=== PATIENT | male | born 1960 | race African-American/Black ===

== ENCOUNTER 2021-04-01 01:42 | Inpatient (IN) | payer MEDICARE, OTHER ==
[~2021-04-01] VITALS: Ht 165.1 cm; Wt 58.1 kg
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
--- NOTE | 2021-04-01 01:58 | NUR ---
per instructions from [employer]" if dc'd at anytime, over the weekend, please call Dionicio Sanders (manager manufacturing) with [employer] task force at [phone] for transport to crisis houseing at [address] [place] [address]
[2021-04-01 02:28] LABS: BASOPHILS % (AUTO) 0.5 % (0.0-2.0); HEMATOCRIT 43 % (39-51); HEMOGLOBIN 14.7 g/dL (13.5-17.5); LYMPHOCYTES # (AUTO) 1.2 K/uL (0.8-4.8); LYMPHOCYTES % (AUTO) 30.1 % (20.0-44.0); MEAN CORPUSCULAR HGB CONC 34 g/dl (31.0-36.0); MEAN CORPUSCULAR VOLUME 96 fL (80-96); MONOCYTES # (AUTO) 0.6 K/uL (0.1-1.30); MONOCYTES % (AUTO) 15.1 % (2.0-12.0); NEUTROPHILS # (AUTO) 2.1 K/uL (1.8-8.9); NEUTROPHILS % (AUTO) 53.3 % (43.0-81.0); PLATELET COUNT (AUTO) 261 K/uL (150-450); RED BLOOD CELL COUNT(AUTO) 4.48 MIL/uL (4.5-6.0); WHITE BLOOD COUNT (AUTO) 3.9 K/uL (4.3-11.0)
[2021-04-01 02:48] LABS: CARBON DIOXIDE 33 mmol/L (21-32); CHLORIDE 105 mmol/L (98-107); GLUCOSE 92 mg/dL (74-106); POTASSIUM 3.3 mmol/L (3.5-5.1); SODIUM SERUM 145 mmol/L (136-145); UREA NITROGEN, BLOOD 16 mg/dL (7-18)
[2021-04-01 02:52] LABS: ACETAMINOPHEN 0 ug/ml (10-30); ALANINE AMINOTRANSFERASE 32 U/L (12-78); ALBUMIN 3.3 g/dL (3.4-5.0); ALCOHOL, BLOOD < 3 mg/dL (0-0); ALKALINE PHOSPHATASE 70 U/L (46-116); ASPARTATE AMINOTRANSFERASE 21 U/L (15-37); BILIRUBIN,DIRECT 0.1 mg/dL (0.0-0.2); BILIRUBIN,TOTAL 0.2 mg/dL (0.2-1.0); TOTAL PROTEIN, SERUM 7.2 g/dL (6.4-8.2)
--- NOTE | 2021-04-01 03:06 | NUR ---
GAVE REPORT TO FÁTIMA ELIZABETH FOR ANGÉLICA
[2021-04-01 03:26] LABS: BILIRUBIN,URINE NEGATIVE (NEGATIVE); COLOR,URINE YELLOW (YELLOW); LEUKOCYTE ESTERASE ,URINE NEGATIVE (NEGATIVE); NITRITE, URINE NEGATIVE (NEGATIVE); PH,URINE 6.5 (5.0-8.0); PROTEIN,URINE NEGATIVE (NEGATIVE); UGLUCOSE NEGATIVE (NEGATIVE); UROBILINOGEN,URINE 0.2 EU/dL (0.2)
[2021-04-01] MEDS ORDERED: MAG HYDROX/AL HYDROX/SIMETH 30 ML UDC PO PRN (04:00)
[2021-04-01] MEDS ORDERED: BLOOD SUGAR DIAGNOSTIC 1 EACH STRIP IN ONE (04:00)
[2021-04-01] MEDS ORDERED: ACETAMINOPHEN 325 MG TABLET PO PRN (04:00)
[2021-04-01 04:06] VITALS: BP 131/80
[2021-04-01] MEDS ORDERED: EFAV1TAB PO (04:23)
[2021-04-01] MEDS ORDERED: QUET100T (04:23)
[2021-04-01] MEDS ORDERED: HYDR25TA4 MT (04:23)
[2021-04-01] MEDS ORDERED: BICT1TAB MT (04:23)
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
--- NOTE | 2021-04-01 05:24 | NUR ---
RN NOTE MIRI GALLEGOS MADE AWARE ABOUT MED RECON TO BE DONE.
--- NOTE | 2021-04-01 06:56 | NUR ---
RN NOTE CALLED DR. FORBES & NOTIFIED ABOUT THE NEW ADMISSION IN ROOM 217.
[2021-04-01 08:00] VITALS: BP 145/87
[2021-04-01] MEDS ORDERED: POTASSIUM CHLORIDE 20 MEQ TAB.PRT.SR PO ONE (09:00)
[2021-04-01] MEDS: LORAZEPAM 0.5 MG TABLET PO PRN (11:17)
--- NOTE | 2021-04-01 11:20 | NUR ---
RN-NOTES PATIENT SCREAMING AND YELLING AT THE EKG STAFF. UPON FACE TO FACE INTERVIEW PATIENT STATED THAT THE WIRE WAS NOT SUPPOSE TO BE REMOVED FROM HIM,AND THAT IT STAY AND REMAIN ON HIS BODY. EXPLAINED THAT THE PROCEDURE WAS DONE THE RIGHT WAY. OFFERED ATIVAN AND AGREED. ATIVAN 0.5MG P.O GIVEN PRN ORDER. WILL CONT. MONITORING FOR SAFETY AND BEHAVIOR.
--- NOTE | 2021-04-01 12:20 | NUR ---
RN- NOTES PATIENT LYING IN BED AWAKE,ALERT CALM,NO ACUTE DISTRESS NOTED.
[2021-04-01 16:10] VITALS: BP 166/96
[2021-04-01 21:00] VITALS: BP 119/73
[2021-04-01] MEDS: QUETIAPINE FUMARATE 25 MG TABLET PO SCH (21:53)
[2021-04-01] MEDS: MAGNESIUM HYDROXIDE 30 ML UDC PO PRN (21:59)
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
[2021-04-02 07:22] LABS: BASOPHILS % (AUTO) 0.6 % (0.0-2.0); EOSINOPHILS % (AUTO) 1.1 % (0.0-6.0); HEMATOCRIT 41 % (39-51); HEMOGLOBIN 13.5 g/dL (13.5-17.5); LYMPHOCYTES % (AUTO) 34.3 % (20.0-44.0); MEAN CORPUSCULAR HGB CONC 33 g/dl (31.0-36.0); MEAN CORPUSCULAR VOLUME 98 fL (80-96); MONOCYTES % (AUTO) 17.8 % (2.0-12.0); NEUTROPHILS # (AUTO) 2.7 K/uL (1.8-8.9); NEUTROPHILS % (AUTO) 46.2 % (43.0-81.0); PLATELET COUNT (AUTO) 79 K/uL (150-450); RED BLOOD CELL COUNT(AUTO) 4.17 MIL/uL (4.5-6.0); WHITE BLOOD COUNT (AUTO) 5.8 K/uL (4.3-11.0)
--- NOTE | 2021-04-02 07:34 | NUR ---
RN NOTE PATIENT WOKE UP & REPORTED THAT HE HAS NOT HAD BM THROUGH OUT THE NIGHT. PATIENT HAD GOOD APPETITE, HAD PLENTY OF SNACKS, NO OTHER SYMPTOMS NOTED. ENDORSED TO AM RN FOR CONTINUITY OF CARE.
[2021-04-02 08:00] VITALS: BP 140/63
[2021-04-02 08:23] LABS: ALBUMIN 2.9 g/dL (3.4-5.0); BILIRUBIN,TOTAL 0.3 mg/dL (0.2-1.0); CALCIUM, SERUM 8.4 mg/dL (8.5-10.1); TOTAL PROTEIN, SERUM 6.7 g/dL (6.4-8.2)
[2021-04-02 08:25] LABS: POTASSIUM 4.6 mmol/L (3.5-5.1)
[2021-04-02 08:38] LABS: CHOLESTEROL 163 mg/dL (<200); HDL CHOLESTEROL 38 mg/dL (40-60); LDL 94 mg/dL (0-99); TRIGLYCERIDES 145 mg/dL (30-150)
[2021-04-02 08:46] LABS: EOSINOPHILS % (MANUAL) 2 % (0-4); LYMPHOCYTES % (MANUAL) 36 % (16-48); MONOCYTES % (MANUAL) 20 % (0-11.0); NEUTROPHILS % (MANUAL) 42 (42-76)
[2021-04-02] MEDS: HYDROCHLOROTHIAZIDE 25 MG TABLET PO SCH (09:44)
[2021-04-02] MEDS: ESCITALOPRAM OXALATE (10 MG) 10 MG TABLET PO SCH (09:45)
[2021-04-02] MEDS: EMTRICITABINE 200 MG CAPSULE PO SCH (11:47)
[2021-04-02] MEDS: TENOFOVIR DISOPROXIL FUMARATE 300 MG TABLET PO SCH (11:47)
[2021-04-02] MEDS: EFAVIRENZ 600 MG TABLET PO SCH (11:47)
[2021-04-02] MEDS: LORAZEPAM 0.5 MG TABLET PO PRN (13:17)
--- NOTE | 2021-04-02 13:18 | NUR ---
Patient c/o anxiety medicated with Ativan 0.5mg will continue to monitor .
--- NOTE | 2021-04-02 13:34 | NUR ---
Patient yelling ,aggressive and agitated ,talking to himself ,throwing himself on the floor ,unpredictable .Patient not following directions ,talking to himself delusional ,offered 1:1 interaction with patient ,encourage patient to verbalize feelings and thoughts but unsuccessful Dr. Sorenson notified with new order ZYPREXA 10MG X1 and 4 point restraint all orders carried out .Zyprexa 10mg IM given AT 13:34 ,patient on 4 point restraint ,patient on 1:1 sitter for safety and observation .Patient refused vital sign x3 ,at 14;45 BP 143 ,95 ,R18 T 98.2 O2 SAT 95% ,patient calm and quite and follow directions ,4 point restraint discontinued order .will continue to monitor for safety q15 minutes .
[2021-04-02] MEDS ORDERED: OLANZAPINE 10 MG VIAL IM STA (13:37)
[2021-04-02 16:00] VITALS: BP 143/99
[2021-04-02] MEDS: GLUCERNA SHAKE 237 ML CAN PO SCH (17:53)
[2021-04-02 20:00] VITALS: BP 129/74
[2021-04-02] MEDS: QUETIAPINE FUMARATE 25 MG TABLET PO SCH (21:50)
[2021-04-03 08:00] VITALS: BP 124/78
[2021-04-03] MEDS: EMTRICITABINE 200 MG CAPSULE PO SCH (08:08)
[2021-04-03] MEDS: TENOFOVIR DISOPROXIL FUMARATE 300 MG TABLET PO SCH (08:09)
[2021-04-03] MEDS: EFAVIRENZ 600 MG TABLET PO SCH (08:09)
[2021-04-03] MEDS: HYDROCHLOROTHIAZIDE 25 MG TABLET PO SCH (08:10)
[2021-04-03] MEDS: ESCITALOPRAM OXALATE (10 MG) 10 MG TABLET PO SCH (08:10)
[2021-04-03] MEDS: GLUCERNA SHAKE 237 ML CAN PO SCH ×3 (08:20→16:44)
--- NOTE | 2021-04-03 09:47 | NUR ---
PT COMPLAINED OF CONSTIPATION. PT GIVEN MAALOX.
[2021-04-03 16:00] VITALS: BP 127/74
[2021-04-03] MEDS: MAGNESIUM HYDROXIDE 30 ML UDC PO PRN (16:27)
--- NOTE | 2021-04-03 16:29 | NUR ---
PT COMPLAINS OF CONSTIPATION. MILK OF MAGNESIA GIVEN
[2021-04-03] MEDS: QUETIAPINE FUMARATE 25 MG TABLET PO SCH ×2 (16:42→21:19)
[2021-04-03 20:00] VITALS: BP 125/76
[2021-04-04] MEDS ORDERED: LACTULOSE 10 G/15 ML UDC (PYXIS) PO ONE (03:00)
[2021-04-04] MEDS ORDERED: SORBITOL SOLUTION 30 ML PO ONE (03:00)
--- NOTE | 2021-04-04 04:19 | NUR ---
GPS RN NOTES: PATIENT C/O CONSTIPATION, EL ORDERED LACTULOSE 10/15ML AND SORBITOL 15ML. BOTH MEDS GIVEN PO ORDERED. PARTIAL DOSE OF SORBITOL 15ML WASTED. WILL CONTINUE TO MONITOR.
--- NOTE | 2021-04-04 06:47 | NUR ---
GPS RN CLOSING NOTE: PATIENT IS CURRENTLY SLEEPING COMFORTABLY IN BED. PATIENT SLEPT 6 HOURS THIS SHIFT. PATIENT WAS COMPLIANT WITH MEDICATION THIS SHIFT. NO S/S OF DISTRESS, RESPIRATION EVEN AND UNLABORED WITH EQUAL RISE AND FALL OF THE CHEST, ON ROOM AIR. BED IN LOWEST POSITION AND LOCKED, SIDE RAILS UP X2. ALL PATIENT CARE NEEDS HAVE BEEN MET AT THIS TIME. WILL CONTINUE TO MONITOR AND ENDORSE TO AM SHIFT.
[2021-04-04 08:00] VITALS: BP 109/65
[2021-04-04] MEDS: QUETIAPINE FUMARATE 25 MG TABLET PO SCH ×3 (08:21→21:09)
[2021-04-04] MEDS: EFAVIRENZ 600 MG TABLET PO SCH (08:21)
[2021-04-04] MEDS: ESCITALOPRAM OXALATE (10 MG) 10 MG TABLET PO SCH (08:21)
[2021-04-04] MEDS: GLUCERNA SHAKE 237 ML CAN PO SCH ×3 (08:21→16:03)
[2021-04-04] MEDS: HYDROCHLOROTHIAZIDE 25 MG TABLET PO SCH (08:22)
[2021-04-04] MEDS: EMTRICITABINE 200 MG CAPSULE PO SCH (08:22)
[2021-04-04] MEDS: TENOFOVIR DISOPROXIL FUMARATE 300 MG TABLET PO SCH (08:22)
--- NOTE | 2021-04-04 09:00 | NUR ---
RN NOTE- PT QUIET THIS MORNING BUT BECAME LABILE AFTER APPROACHING RN FOR MORNING RX PASS. STATED HES HAD NO BM X 3 DAYS. PT AGITATED. REDIRECTED . MEDS GIVEN. COMPLIANT, PT W FLAT AFFECT, POOR EYE CONTACT, DISHEVELED, REFUSES SHOWER. PO INTAKE FAIR. DENIES SI HI VH
[2021-04-04] MEDS ORDERED: BISACODYL SUPP (10 MG) 10 MG/SUPP.RECT SUPP.RECT RC ONE (09:30)
--- NOTE | 2021-04-04 09:31 | NUR ---
RN NOTE- PT W C/O CONTINUED CONSTIPATION. NO BM X 3 DAYS. TRIED LACTULOSE AND SORBITOL LAST NOC TO NO AVAIL. CARLO STOVALL ORDERED DULCOLAX SUPP. X ONE DOSE. COMPLIED.
--- NOTE | 2021-04-04 09:40 | NUR ---
SNF Referrals: FREDI faxed clinicals to SNF's for placement. List of SNF's include: [facility], fax: [phone] [facility], fax: [phone] [facility], fax: [phone] [facility], fax: [phone]
--- NOTE | 2021-04-04 13:50 | NUR ---
D/C Planning: FREDI received a call from Kristina ([phone]) in admissions at [facility] and notified FREDI that the patient has been accepted.
[2021-04-04 14:00] VITALS: BP 113/67
--- NOTE | 2021-04-04 14:16 | NUR ---
RN NOTE- PT REPORTED LARGE BM AFTER LUNCH. SUPPOSITORY EFFECTIVE
[2021-04-04 16:00] VITALS: BP 113/67
--- NOTE | 2021-04-04 19:15 | NUR ---
RN OPENING NOTE PATIENT IS IN BED UNDER THE BLANKET, AWAKE. INTERACTS ONLY WHEN BEING TALKED TO. PATIENT IS PARANOID, ANXIOUS, WITHDRAWN, ABLE TO REDIRECT PATIENT. PATIENT IS A/O X2 AT THIS TIME. BREATHING EVEN AND UNLABORED, NO RESPIRATORY DISTRESS. DENIES SI/HI AT THIS TIME. SAFETY MEASURES IN PLACE: BED LOCKED AND IN LOWEST POSITION. ENCOURAGED PATIENT TO CALL WHEN IN NEED. WILL MONITOR PATIENT'S BEHAVIOR AND FOR SAFETY.
[2021-04-04 20:00] VITALS: BP 148/83
[2021-04-04] MEDS: LORAZEPAM 0.5 MG TABLET PO PRN (20:07)
[2021-04-04 23:00] VITALS: BP 125/75
[2021-04-05 08:00] VITALS: BP 127/91
[2021-04-05] MEDS: GLUCERNA SHAKE 237 ML CAN PO SCH ×3 (08:00→16:38)
[2021-04-05] MEDS: EMTRICITABINE 200 MG CAPSULE PO SCH (09:12)
[2021-04-05] MEDS: TENOFOVIR DISOPROXIL FUMARATE 300 MG TABLET PO SCH (09:13)
[2021-04-05] MEDS: EFAVIRENZ 600 MG TABLET PO SCH (09:14)
[2021-04-05] MEDS: HYDROCHLOROTHIAZIDE 25 MG TABLET PO SCH (09:16)
[2021-04-05] MEDS: ESCITALOPRAM OXALATE (10 MG) 10 MG TABLET PO SCH (09:16)
[2021-04-05] MEDS: QUETIAPINE FUMARATE 25 MG TABLET PO SCH ×3 (09:18→21:15)
--- NOTE | 2021-04-05 09:40 | NUR ---
Probable cause hearing: Pt.'s 5250 hold was upheld on the grounds of gravely disabled.
[2021-04-05] MEDS: MAGNESIUM HYDROXIDE 30 ML UDC PO PRN (11:10)
--- NOTE | 2021-04-05 11:11 | NUR ---
PT STATES BEING CONSTIPATED. MILK OF MAGNESIA GIVEN.
--- NOTE | 2021-04-05 14:26 | NUR ---
Initial Discharge Plan: Pt plans to be discharged to a SNF. Pt has been accepted to [facility]. SW will work with the pt and the MD regarding appropriate discharge planning. SW will form a safe and proper discharge plan.
[2021-04-05 16:00] VITALS: BP 111/77
[2021-04-05 19:53] VITALS: BP 116/76
[2021-04-05] MEDS: ZOLPIDEM TARTRATE 5 MG TABLET PO PRN (22:08)
--- NOTE | 2021-04-05 22:15 | NUR ---
GPS-RN NOTES: INSOMNIA PATIENT C/O INABILITY TO SLEEP. PRN AMBIEN 5MG PO GIVEN ORDERED. WILL CONTINUE TO MONITOR.
[2021-04-06 08:00] VITALS: BP 121/75
[2021-04-06] MEDS: GLUCERNA SHAKE 237 ML CAN PO SCH ×3 (08:30→16:40)
[2021-04-06] MEDS: HYDROCHLOROTHIAZIDE 25 MG TABLET PO SCH (08:31)
[2021-04-06] MEDS: ESCITALOPRAM OXALATE (10 MG) 10 MG TABLET PO SCH (08:31)
[2021-04-06] MEDS: MAGNESIUM HYDROXIDE 30 ML UDC PO PRN (08:31)
[2021-04-06] MEDS: TENOFOVIR DISOPROXIL FUMARATE 300 MG TABLET PO SCH (08:32)
[2021-04-06] MEDS: EMTRICITABINE 200 MG CAPSULE PO SCH (08:32)
[2021-04-06] MEDS: QUETIAPINE FUMARATE 25 MG TABLET PO SCH ×3 (08:32→21:32)
[2021-04-06] MEDS: EFAVIRENZ 600 MG TABLET PO SCH (08:33)
[2021-04-06] MEDS ORDERED: BISACODYL SUPP (10 MG) 10 MG/SUPP.RECT SUPP.RECT RC PRN (10:30)
[2021-04-06 16:00] VITALS: BP 114/67
[2021-04-06 19:53] VITALS: BP 102/69
[2021-04-06] MEDS: SENNOSIDES 8.6 MG TABLET PO SCH (21:32)
[2021-04-06] MEDS: ZOLPIDEM TARTRATE 5 MG TABLET PO PRN (22:37)
--- NOTE | 2021-04-06 22:38 | NUR ---
GPS RN NOTES: AMBIEN 5MG/1TAB GIVEN PO FOR SLEEP AT 2237. WILL CONTINUE TO MONITOR.
[2021-04-07 08:00] VITALS: BP 116/67
[2021-04-07] MEDS: HYDROCHLOROTHIAZIDE 25 MG TABLET PO SCH (09:00)
[2021-04-07] MEDS: GLUCERNA SHAKE 237 ML CAN PO SCH ×3 (09:16→17:50)
[2021-04-07] MEDS: TENOFOVIR DISOPROXIL FUMARATE 300 MG TABLET PO SCH (09:20)
[2021-04-07] MEDS: EFAVIRENZ 600 MG TABLET PO SCH (09:20)
[2021-04-07] MEDS: EMTRICITABINE 200 MG CAPSULE PO SCH (09:20)
[2021-04-07] MEDS: ESCITALOPRAM OXALATE (10 MG) 10 MG TABLET PO SCH (09:22)
[2021-04-07] MEDS: QUETIAPINE FUMARATE 25 MG TABLET PO SCH ×3 (09:22→22:00)
[2021-04-07 16:00] VITALS: BP 101/56
--- NOTE | 2021-04-07 16:19 | NUR ---
D/C Planning: SW discussed D/C planning to [facility] with pt. Pt. is ambivalent. However, stated that he does not want to be homeless and is agreeable to go to [facility]. FREDI called [facility] Kristina CUELLAR, ([phone]) and notified her of discharge on 04/10/2021 and Kristina is agreeable. FREDI will follow up accordingly.
[2021-04-07 20:20] VITALS: BP 149/80
[2021-04-07] MEDS: LORAZEPAM 0.5 MG TABLET PO PRN (20:57)
--- NOTE | 2021-04-07 21:00 | NUR ---
RN NOTES ANXIETY: PT/ C/O FEELING ANXIOUS RESTLESS, ATIVAN 0.5 MG PO PRN GIVEN PER PT. REQUEST, WILL CONTINUE TO MONITOR.
[2021-04-07] MEDS: SENNOSIDES 8.6 MG TABLET PO SCH (22:00)
[2021-04-08 08:00] VITALS: BP 154/70
[2021-04-08] MEDS: GLUCERNA SHAKE 237 ML CAN PO SCH ×3 (08:53→16:47)
[2021-04-08] MEDS: EMTRICITABINE 200 MG CAPSULE PO SCH (08:53)
[2021-04-08] MEDS: TENOFOVIR DISOPROXIL FUMARATE 300 MG TABLET PO SCH (08:53)
[2021-04-08] MEDS: MAGNESIUM HYDROXIDE 30 ML UDC PO PRN (08:53)
[2021-04-08] MEDS: HYDROCHLOROTHIAZIDE 25 MG TABLET PO SCH (08:54)
[2021-04-08] MEDS: EFAVIRENZ 600 MG TABLET PO SCH (08:54)
[2021-04-08] MEDS: QUETIAPINE FUMARATE 25 MG TABLET PO SCH ×3 (08:55→21:25)
[2021-04-08] MEDS: ESCITALOPRAM OXALATE (10 MG) 10 MG TABLET PO SCH (08:55)
[2021-04-08 16:00] VITALS: BP 149/72
[2021-04-08] MEDS: LORAZEPAM 0.5 MG TABLET PO PRN (20:43)
--- NOTE | 2021-04-08 20:43 | NUR ---
RN NOTES ANXIETY: PT/ C/O FEELING ANXIOUS RESTLESS, ATIVAN 0.5 MG PO PRN GIVEN PER PT. REQUEST, WILL CONTINUE TO MONITOR.
[2021-04-08 21:04] VITALS: BP 122/58
[2021-04-08] MEDS: SENNOSIDES 8.6 MG TABLET PO SCH (21:25)
[2021-04-09 08:00] VITALS: BP 124/71
[2021-04-09] MEDS: GLUCERNA SHAKE 237 ML CAN PO SCH ×3 (08:00→17:15)
[2021-04-09] MEDS: QUETIAPINE FUMARATE 25 MG TABLET PO SCH ×3 (09:39→21:29)
[2021-04-09] MEDS: EFAVIRENZ 600 MG TABLET PO SCH (09:39)
[2021-04-09] MEDS: EMTRICITABINE 200 MG CAPSULE PO SCH (09:39)
[2021-04-09] MEDS: HYDROCHLOROTHIAZIDE 25 MG TABLET PO SCH (09:40)
[2021-04-09] MEDS: TENOFOVIR DISOPROXIL FUMARATE 300 MG TABLET PO SCH (09:41)
[2021-04-09] MEDS: ESCITALOPRAM OXALATE (10 MG) 10 MG TABLET PO SCH (09:41)
[2021-04-09 16:00] VITALS: BP 135/87
[2021-04-09] MEDS: LORAZEPAM 0.5 MG TABLET PO PRN (16:24)
--- NOTE | 2021-04-09 16:25 | NUR ---
patient c/o anxiety medicated with ativan 0.5mg x1 will continue to monitor .
[2021-04-09] MEDS: SENNOSIDES 8.6 MG TABLET PO SCH (21:29)
[2021-04-09 21:40] VITALS: BP 129/94
[2021-04-10 08:30] VITALS: BP 125/80
[2021-04-10] MEDS: GLUCERNA SHAKE 237 ML CAN PO SCH ×2 (08:54→12:29)
[2021-04-10 08:55] VITALS: BP 125/80
[2021-04-10] MEDS: ESCITALOPRAM OXALATE (10 MG) 10 MG TABLET PO SCH (08:55)
[2021-04-10] MEDS: HYDROCHLOROTHIAZIDE 25 MG TABLET PO SCH (08:55)
[2021-04-10] MEDS: QUETIAPINE FUMARATE 25 MG TABLET PO SCH (08:55)
[2021-04-10] MEDS: EFAVIRENZ 600 MG TABLET PO SCH (08:57)
[2021-04-10] MEDS: TENOFOVIR DISOPROXIL FUMARATE 300 MG TABLET PO SCH (08:58)
[2021-04-10] MEDS: EMTRICITABINE 200 MG CAPSULE PO SCH (08:58)
--- NOTE | 2021-04-10 09:00 | NUR ---
RN NOTE- PATIENT IS IN BED AWAKE. INTERACTS ONLY WHEN BEING TALKED TO. PATIENT IS PARANOID, ANXIOUS, WITHDRAWN, ABLE TO REDIRECT PATIENT. PATIENT IS A/O X2 AT THIS TIME. BREATHING EVEN AND UNLABORED, NO RESPIRATORY DISTRESS. DENIES SI/HI AT THIS TIME. SAFETY MEASURES IN PLACE: BED LOCKED AND IN LOWEST POSITION. ENCOURAGED PATIENT TO CALL WHEN IN NEED. WILL MONITOR PATIENT'S BEHAVIOR AND FOR SAFETY.
--- NOTE | 2021-04-10 10:35 | NUR ---
SS Note: FREDI faxed COVID test results to [facility] fax: [phone] ATTN;: Kristina for D/C planning.
--- NOTE | 2021-04-10 14:25 | NUR ---
RN NOTE- PT DC AT THIS TIME TO [facility], PT ALERT ORIENTED PERSON PLACE TIME PURPOSE. DENIES SI HI AH VH. PT VS STABLE, ID WRISTBAND REMOVED, VALUABLES RETURNED & SIGNED FOR. ESCORTED OFF UNIT IN [facility] BY STAFF. REPORT PHONED TO KELLY AT FACILITY.
--- NOTE | 2021-04-10 14:30 | NUR ---
Discharge Note: The pt. was discharged to [facility] [[address] [facility] [address]; [phone]]. Pt. was transported via [facility]. Upon discharge the pt.s mood is slightly anxious with distressed affect. The pt. remained calm & cooperative. The pt. denies SI/HI and denies hallucinations. The pt. will be under the care of psychiatrist, Dr. Sorenson for [facility]. Pt. will be seen by scientific affairs manager at [facility] upon admission. Addendum: 04/10/21 at 1506 by SATHYA RAI The pt. was discharged to [facility] [[address] [facility] [address]; [phone]]. Pt. was transported via [facility] [phone]. Upon discharge the pt.s mood is slightly anxious with distressed affect. The pt. remained calm & cooperative. The pt. denies SI/HI and denies hallucinations. The pt. will be under the care of psychiatrist, Dr. Sorenson for [facility]. Pt. will be seen by scientific affairs manager Shar Doe MD [[address] [address]; ] at [facility]. The choice of vendor and multidisciplinary exit care form was done, printed, signed, and given to the patient.
== END 2021-04-10 14:25 | DRG 885 ==
LOC: ER 01:47 → GPS 03:03
PROVIDERS: ADMIT Psychiatry & Neurology Psychiatry; ATTEND Registered Nurse
DX: F31.5 Bipolar disorder, current episode depressed, severe, with psychotic features (principal); F06.8 Other specified mental disorders due to known physiological condition; R45.851 Suicidal ideations; F41.9 Anxiety disorder, unspecified; I10 Essential (primary) hypertension; R73.03 Prediabetes; Z73.6 Limitation of activities due to disability; R53.1 Weakness; R27.8 Other lack of coordination; Z59.0 Homelessness; Z91.81 History of falling; E78.5 Hyperlipidemia, unspecified; Z91.5 Personal history of self-harm
CPT/HCPCS: 36415; 80048-TC; 80053-TC; 80061-TC; 80076-TC; 82962-TC; 85025-TC; 87081-TC; G0480; J3490

== ENCOUNTER 2021-05-10 12:55 | Inpatient (IN) | payer MEDICARE, OTHER ==
[~2021-05-10] VITALS: Ht 165.1 cm; Wt 59.0 kg
[~2021-05-10 12:55] MED LIST: BICT1TAB MT; EFAV1TAB PO; HYDR25TA4 MT; QUET100T PO
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
[2021-05-10 13:57] LABS: BASOPHILS % (AUTO) 0.4 % (0.0-2.0); EOSINOPHILS % (AUTO) 0.7 % (0.0-6.0); HEMATOCRIT 50 % (39-51); HEMOGLOBIN 16.8 g/dL (13.5-17.5); LYMPHOCYTES # (AUTO) 1.4 K/uL (0.8-4.8); LYMPHOCYTES % (AUTO) 30.2 % (20.0-44.0); MEAN CORPUSCULAR HGB CONC 34 g/dl (31.0-36.0); MEAN CORPUSCULAR VOLUME 95 fL (80-96); MONOCYTES # (AUTO) 0.6 K/uL (0.1-1.30); MONOCYTES % (AUTO) 13.1 % (2.0-12.0); NEUTROPHILS # (AUTO) 2.6 K/uL (1.8-8.9); NEUTROPHILS % (AUTO) 55.6 % (43.0-81.0); PLATELET COUNT (AUTO) 227 K/uL (150-450); RED BLOOD CELL COUNT(AUTO) 5.22 MIL/uL (4.5-6.0); WHITE BLOOD COUNT (AUTO) 4.7 K/uL (4.3-11.0)
[2021-05-10 14:10] LABS: CALCIUM, SERUM 9.1 mg/dL (8.5-10.1); CARBON DIOXIDE 26 mmol/L (21-32); CHLORIDE 102 mmol/L (98-107); CREATININE 0.9 mg/dL (0.6-1.3); GLUCOSE 125 mg/dL (74-106); POTASSIUM 3.2 mmol/L (3.5-5.1); SODIUM SERUM 138 mmol/L (136-145); UREA NITROGEN, BLOOD 16 mg/dL (7-18)
[2021-05-10 14:16] LABS: ACETAMINOPHEN 0 ug/ml (10-30); ALANINE AMINOTRANSFERASE 27 U/L (12-78); ALBUMIN 3.4 g/dL (3.4-5.0); ALCOHOL, BLOOD < 3 mg/dL (0-0); ALKALINE PHOSPHATASE 60 U/L (46-116); ASPARTATE AMINOTRANSFERASE 24 U/L (15-37); BILIRUBIN,DIRECT 0.1 mg/dL (0.0-0.2); BILIRUBIN,TOTAL 0.3 mg/dL (0.2-1.0); TOTAL PROTEIN, SERUM 7.4 g/dL (6.4-8.2)
--- NOTE | 2021-05-10 17:07 | NUR ---
covid antigen swab and sent to lab
--- NOTE | 2021-05-10 17:18 | NUR ---
URINE COLLECTED AND SENT TO THE LAB
[2021-05-10 17:32] LABS: BILIRUBIN,URINE Negative (NEGATIVE); COLOR,URINE YELLOW (YELLOW); LEUKOCYTE ESTERASE ,URINE Negative (NEGATIVE); NITRITE, URINE Negative (NEGATIVE); PROTEIN,URINE Negative (NEGATIVE); UGLUCOSE Negative (NEGATIVE); UROBILINOGEN,URINE 0.2 EU/dL (0.2)
--- NOTE | 2021-05-10 18:30 | NUR ---
REPORT GIVEN TO 215
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
--- NOTE | 2021-05-10 19:06 | NUR ---
HEATHER RN AT BEDSIDE FOR EVALUATION.
--- NOTE | 2021-05-10 19:49 | NUR ---
PATIENT IN NO ACUTE DISTRESS, PT VSS, PT BEING TRANSFERRED TO GPS
[2021-05-10 20:25] VITALS: BP 141/86
[2021-05-10 20:45] VITALS: BP 141/86
[2021-05-10] MEDS ORDERED: MAG HYDROX/AL HYDROX/SIMETH 30 ML UDC PO PRN (21:00)
[2021-05-10] MEDS ORDERED: ACETAMINOPHEN 325 MG TABLET PO PRN (21:00)
[2021-05-10] MEDS ORDERED: BLOOD SUGAR DIAGNOSTIC 1 EACH STRIP IN ONE (21:00)
[2021-05-10] MEDS ORDERED: MAGNESIUM HYDROXIDE 30 ML UDC PO PRN (21:00)
[2021-05-10] MEDS ORDERED: TEMAZEPAM 15 MG CAPSULE PO PRN (21:30)
[2021-05-10] MEDS ORDERED: LORA-259 PO (22:54)
[2021-05-10] MEDS: QUETIAPINE FUMARATE 100 MG TABLET PO SCH (23:07)
[2021-05-10] MEDS ORDERED: DOCU-141 PO (23:14)
[2021-05-10] MEDS ORDERED: QUET25TA PO (23:14)
[2021-05-10] MEDS ORDERED: ESCI5TAB PO (23:14)
[2021-05-10] MEDS ORDERED: BISA-79 PR (23:14)
[2021-05-10] MEDS ORDERED: SENN-261 PO (23:14)
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
--- NOTE | 2021-05-11 00:04 | NUR ---
RN NOTE: DR. GRAHAM WAS NOTIFIED ABOUT PATIENT'S ADMISSION AT [facility] GPS UNIT.
--- NOTE | 2021-05-11 00:50 | NUR ---
FÁTIMA NOTE INFORMED DR. PARIS THAT PATIENT'S MEDS ARE READY TO BE RECONCILED. PER DR. PARIS, PATIENT'S MED RECON WILL BE DONE IN MORNING TOMORROW. Addendum: 05/11/21 at 0052 by DEMETRI SANCHEZ RN PER DR. PARIS, MED RECON WILL BE DONE IN AM ON 05/11/21.
[2021-05-11 07:07] LABS: BILIRUBIN,TOTAL 0.3 mg/dL (0.2-1.0); CALCIUM, SERUM 8.5 mg/dL (8.5-10.1); TOTAL PROTEIN, SERUM 6.8 g/dL (6.4-8.2)
[2021-05-11 08:00] VITALS: BP 110/69
[2021-05-11] MEDS ORDERED: ZOLP10TA2 PO (08:34)
[2021-05-11] MEDS ORDERED: MAGN400O6 PO (08:34)
[2021-05-11] MEDS ORDERED: EFAV600T PO (08:34)
[2021-05-11] MEDS ORDERED: ACET325T53 PO (08:34)
[2021-05-11] MEDS ORDERED: EMTR200C4 PO (08:34)
[2021-05-11] MEDS: QUETIAPINE FUMARATE 25 MG TABLET PO SCH (08:52)
[2021-05-11] MEDS ORDERED: POTASSIUM CHLORIDE 20 MEQ TAB.PRT.SR PO ONE ×2 (10:00→12:00)
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
[2021-05-11] MEDS ORDERED: QUETIAPINE FUMARATE 25 MG TABLET PO SCH (13:30)
[2021-05-11 16:00] VITALS: BP 107/72
[2021-05-11 21:04] VITALS: BP 124/81
[2021-05-11] MEDS: QUETIAPINE FUMARATE 100 MG TABLET PO SCH (22:00)
[2021-05-11] MEDS ORDERED: QUETIAPINE FUMARATE 100 MG TABLET PO SCH (22:00)
[2021-05-11] MEDS: EFAVIRENZ 600 MG TABLET PO SCH (22:18)
[2021-05-12 08:00] VITALS: BP 116/69
[2021-05-12] MEDS: DOCUSATE SODIUM 100 MG CAPSULE PO SCH (08:37)
[2021-05-12] MEDS: ESCITALOPRAM OXALATE (10 MG) 10 MG TABLET PO SCH (08:38)
[2021-05-12] MEDS: QUETIAPINE FUMARATE 25 MG TABLET PO SCH (08:38)
[2021-05-12] MEDS: HYDROCHLOROTHIAZIDE 25 MG TABLET PO SCH (08:39)
[2021-05-12] MEDS: EMTRICITABINE 200 MG CAPSULE PO SCH (11:30)
[2021-05-12 16:00] VITALS: BP 107/67
--- NOTE | 2021-05-12 17:59 | NUR ---
GPS RN NOTES PATIENT RESTING IN ROOM, WITHDRAWN MOST OF THE DAY, VERY QUITE
[2021-05-12] MEDS: clonazePAM 0.5 MG TABLET PO PRN (19:53)
--- NOTE | 2021-05-12 20:00 | NUR ---
RN NOTES: ANXIETY PT.C/O VERY ANXIOUS , RESTLESS , KLONOPIN 0.5 MG GIVEN PER PT. REQUEST, WILL CONTINUE TO MONITOR.
[2021-05-12 20:52] VITALS: BP 122/71
[2021-05-12] MEDS: EFAVIRENZ 600 MG TABLET PO SCH (21:28)
[2021-05-12] MEDS: QUETIAPINE FUMARATE 100 MG TABLET PO SCH (21:28)
[2021-05-13 08:00] VITALS: BP 116/79
[2021-05-13] MEDS: DOCUSATE SODIUM 100 MG CAPSULE PO SCH (08:38)
[2021-05-13] MEDS: ESCITALOPRAM OXALATE (10 MG) 10 MG TABLET PO SCH (08:38)
[2021-05-13] MEDS: HYDROCHLOROTHIAZIDE 25 MG TABLET PO SCH (08:38)
[2021-05-13] MEDS: QUETIAPINE FUMARATE 25 MG TABLET PO SCH (08:47)
[2021-05-13] MEDS: EMTRICITABINE 200 MG CAPSULE PO SCH (08:47)
[2021-05-13 16:00] VITALS: BP 122/78
[2021-05-13 20:39] VITALS: BP 113/73
[2021-05-13] MEDS: clonazePAM 0.5 MG TABLET PO PRN (20:49)
[2021-05-13] MEDS: QUETIAPINE FUMARATE 100 MG TABLET PO SCH (20:50)
[2021-05-13] MEDS: EFAVIRENZ 600 MG TABLET PO SCH (21:24)
[2021-05-14 08:00] VITALS: BP 114/71
[2021-05-14] MEDS: DOCUSATE SODIUM 100 MG CAPSULE PO SCH (09:05)
[2021-05-14] MEDS: QUETIAPINE FUMARATE 25 MG TABLET PO SCH (09:05)
[2021-05-14] MEDS: HYDROCHLOROTHIAZIDE 25 MG TABLET PO SCH (09:05)
[2021-05-14] MEDS: ESCITALOPRAM OXALATE (10 MG) 10 MG TABLET PO SCH (09:06)
[2021-05-14] MEDS: EMTRICITABINE 200 MG CAPSULE PO SCH (09:08)
[2021-05-14 16:00] VITALS: BP 141/75
--- NOTE | 2021-05-14 20:00 | NUR ---
GPS-RN NOTES: PATIENT REFUSED WEEKLY SKIN ASSESSMENT.
[2021-05-14 20:41] VITALS: BP 134/83
[2021-05-14] MEDS: QUETIAPINE FUMARATE 100 MG TABLET PO SCH (21:16)
[2021-05-14] MEDS: EFAVIRENZ 600 MG TABLET PO SCH (21:42)
[2021-05-15 08:00] VITALS: BP 125/87
[2021-05-15] MEDS: ESCITALOPRAM OXALATE (10 MG) 10 MG TABLET PO SCH (08:35)
[2021-05-15] MEDS: DOCUSATE SODIUM 100 MG CAPSULE PO SCH (08:35)
[2021-05-15] MEDS: QUETIAPINE FUMARATE 25 MG TABLET PO SCH (08:35)
[2021-05-15] MEDS: HYDROCHLOROTHIAZIDE 25 MG TABLET PO SCH (08:36)
[2021-05-15] MEDS: EMTRICITABINE 200 MG CAPSULE PO SCH (08:38)
--- NOTE | 2021-05-15 09:00 | NUR ---
RN NOTE- RECEIVED PATIENT IN BED COMFORTABLY, AWAKE, GUARDED,ISOLATIVE DEPRESSED MOOD PATIENT CALM.NO ACUTE DISTRESS NOTED.AMBULATORY STEADY GAIT.PATIENT COMPLIANT WITH MEDICATIONS WILL CONT. MONITORING FOR SAFETY AND BEHAVIOR.
[2021-05-15 09:23] LABS: BASOPHILS % (AUTO) 0.4 % (0.0-2.0); EOSINOPHILS % (AUTO) 1.6 % (0.0-6.0); HEMATOCRIT 47 % (39-51); HEMOGLOBIN 15.9 g/dL (13.5-17.5); LYMPHOCYTES # (AUTO) 1.3 K/uL (0.8-4.8); LYMPHOCYTES % (AUTO) 29.8 % (20.0-44.0); MEAN CORPUSCULAR HGB CONC 34 g/dl (31.0-36.0); MEAN CORPUSCULAR VOLUME 97 fL (80-96); MONOCYTES # (AUTO) 0.5 K/uL (0.1-1.30); MONOCYTES % (AUTO) 12.6 % (2.0-12.0); NEUTROPHILS # (AUTO) 2.3 K/uL (1.8-8.9); NEUTROPHILS % (AUTO) 55.6 % (43.0-81.0); PLATELET COUNT (AUTO) 196 K/uL (150-450); RED BLOOD CELL COUNT(AUTO) 4.87 MIL/uL (4.5-6.0); WHITE BLOOD COUNT (AUTO) 4.2 K/uL (4.3-11.0)
[2021-05-15 10:17] LABS: CALCIUM, SERUM 9.1 mg/dL (8.5-10.1); CREATININE 1.2 mg/dL (0.6-1.3); MAGNESIUM 2.2 mg/dL (1.8-2.4); PHOSPHORUS 3.4 mg/dL (2.5-4.9); POTASSIUM 3.4 mmol/L (3.5-5.1)
[2021-05-15 16:00] VITALS: BP 111/80
[2021-05-15 20:00] VITALS: BP 123/88
[2021-05-15] MEDS: EFAVIRENZ 600 MG TABLET PO SCH (21:30)
[2021-05-15] MEDS: QUETIAPINE FUMARATE 100 MG TABLET PO SCH (21:30)
[2021-05-16 08:00] VITALS: BP 106/65
[2021-05-16] MEDS: EMTRICITABINE 200 MG CAPSULE PO SCH (08:17)
[2021-05-16] MEDS: HYDROCHLOROTHIAZIDE 25 MG TABLET PO SCH (08:17)
[2021-05-16] MEDS: DOCUSATE SODIUM 100 MG CAPSULE PO SCH (08:18)
[2021-05-16] MEDS: QUETIAPINE FUMARATE 25 MG TABLET PO SCH (08:18)
[2021-05-16] MEDS: ESCITALOPRAM OXALATE (10 MG) 10 MG TABLET PO SCH (08:20)
--- NOTE | 2021-05-16 09:00 | NUR ---
RN NOTE- WITHDRAWN, ISOLATIVE AT TIMES THOUGH MORE VISIBLE ON UNIT THIS MORNING RECEIVED PATIENT IN BED COMFORTABLY, DEPRESSED MOOD PATIENT CALM. NO ACUTE DISTRESS NOTED. AMBULATORY STEADY GAIT.PATIENT COMPLIANT WITH MEDICATIONS WILL CONT. MONITORING FOR SAFETY AND BEHAVIOR.
--- NOTE | 2021-05-16 15:05 | NUR ---
Probable Cause Hearing Pt's 5250 hold for danger to others and gravely disabled has been discontinued.
[2021-05-16 16:00] VITALS: BP 113/69
[2021-05-16 20:00] VITALS: BP 104/70
--- NOTE | 2021-05-16 21:06 | NUR ---
RN NOTES: COVID19 SPECIMEN SWAB ON LEFT NARES DONE AT 2109
[2021-05-16] MEDS ORDERED: ATORVASTATIN 10 MG TABLET PO SCH (22:00)
[2021-05-16] MEDS: QUETIAPINE FUMARATE 100 MG TABLET PO SCH (22:02)
[2021-05-16] MEDS: EFAVIRENZ 600 MG TABLET PO SCH (22:02)
[2021-05-17 08:00] VITALS: BP 114/82
[2021-05-17 08:50] VITALS: BP 114/82
[2021-05-17] MEDS: DOCUSATE SODIUM 100 MG CAPSULE PO SCH (08:50)
[2021-05-17] MEDS: HYDROCHLOROTHIAZIDE 25 MG TABLET PO SCH (08:50)
[2021-05-17] MEDS: QUETIAPINE FUMARATE 25 MG TABLET PO SCH (08:51)
[2021-05-17] MEDS: ESCITALOPRAM OXALATE (10 MG) 10 MG TABLET PO SCH (08:51)
[2021-05-17] MEDS: EMTRICITABINE 200 MG CAPSULE PO SCH (08:51)
--- NOTE | 2021-05-17 09:30 | NUR ---
RN-CO: DR GRAHAM GAVE ORDER TO DISCHARGE PATIENT TO SNF, NOTED.
--- NOTE | 2021-05-17 13:55 | NUR ---
SS D/C NOTE Pt was discharged to [facility] ([facility]) @ 1350 in stable condition Compliant with medication and cooperative with treatment. Pt was transported via ambulance. There was no one to notify for this placement. Upon discharge, the pt appeared to be in a euthymic mood with a slightly anxious affect. Pt stated that he does not have any suicidal or homicidal ideation as well as no visual or auditory hallucinations. Pt appears to be alert and oriented x4 (time, place, situation and self). Pt appears to be well-groomed. PT multidisciplinary exit care form and medication reconciliation were done, printed, signed, and given to the patient. phone report given to Coco SHINE. given copy of after care plan. All belongings returned.
--- NOTE | 2021-05-17 14:01 | NUR ---
SS D/C NOTE Pt was discharged to [facility] (SNF) located at [address] [place] [address]; . Pt was transported via ambulance around 2 p.m. There was no one to notify for this placement. Upon discharge, the pt appeared to be in a euthymic mood with a slightly anxious affect. Pt stated that he does not have any suicidal or homicidal ideation as well as no visual or auditory hallucinations. Pt appears to be alert and oriented x4 (time, place, situation and self). Pt appears to be well-groomed and appropriately dressed. Pt will be under the care of psychiatrist, Dr. Sorenson, located at [address] [facility] [address] [facility] [address], [place] [address]; and manager social work, Dr. Rios, located at [address] [facility], [address], [place] [address]; . The Choice of vendor form and the multidisciplinary exit care form was done, printed, signed, and given to the patient.
== END 2021-05-17 13:50 | DRG 885 ==
LOC: ER 12:59 → GPS 18:57
PROVIDERS: ADMIT Psychiatry & Neurology Psychiatry; ATTEND Nurse Practitioner Family
DX: F33.2 Major depressive disorder, recurrent severe without psychotic features (principal); F29 Unspecified psychosis not due to a substance or known physiological condition; F41.9 Anxiety disorder, unspecified; I10 Essential (primary) hypertension; E78.5 Hyperlipidemia, unspecified; R73.03 Prediabetes; Z79.899 Other long term (current) drug therapy; E87.6 Hypokalemia
CPT/HCPCS: 36415; 80048-TC; 80053-TC; 80061-TC; 80076-TC; 82962-TC; 83735-TC; 84100-TC; 85025-TC; 87081-TC; 97116-TC; 97530-TC; C9803; G0480

== ENCOUNTER 2022-08-06 10:42 | Inpatient (IN) | payer MEDICARE, OTHER ==
[~2022-08-06] VITALS: Ht 165.1 cm; Wt 68.0 kg
[~2022-08-06 10:42] MED LIST changes: +ACET325T53 PO; -BICT1TAB MT; +BISA-79 PR; +DOCU-141 PO; -EFAV1TAB PO; +EFAV600T PO; +EMTR200C4 PO; +ESCI5TAB PO; -HYDR25TA4 MT; +HYDR25TA4 PO; +LORA-259 PO; +MAGN400O6 PO; +QUET25TA PO; +SENN-261 PO; +ZOLP10TA2 PO
--- NOTE | 2022-08-06 10:45 | NUR ---
RECEIVED PT 62 YRS MALE TRANSFER FROM SNF FOR COUGHING AND CONGESTION SINCE SATURDAY AWAKE AND ALERT
--- NOTE | 2022-08-06 11:30 | NUR ---
BLOOD DROW AT BED SIDE
--- NOTE | 2022-08-06 11:45 | NUR ---
C XRAY DONE AT BED SIDE
[2022-08-06 12:03] LABS: BASOPHILS % (AUTO) 0.2 % (0.0-2.0); EOSINOPHILS % (AUTO) 0.7 % (0.0-6.0); HEMATOCRIT 48 % (39-51); LYMPHOCYTES # (AUTO) 1.7 K/uL (0.8-4.8); MEAN CORPUSCULAR HGB CONC 34 g/dl (31.0-36.0); MEAN CORPUSCULAR VOLUME 95 fL (80-96); MONOCYTES # (AUTO) 0.7 K/uL (0.1-1.30); MONOCYTES % (AUTO) 12.4 % (2.0-12.0); NEUTROPHILS # (AUTO) 3.1 K/uL (1.8-8.9); NEUTROPHILS % (AUTO) 55.7 % (43.0-81.0); PLATELET COUNT (AUTO) 188 K/uL (150-450); RED BLOOD CELL COUNT(AUTO) 5.02 MIL/uL (4.5-6.0); WHITE BLOOD COUNT (AUTO) 5.6 K/uL (4.3-11.0)
[2022-08-06 12:16] LABS: CALCIUM, SERUM 8.7 mg/dL (8.5-10.1); CARBON DIOXIDE 26 mmol/L (21-32); CHLORIDE 103 mmol/L (98-107); CREATININE 1.2 mg/dL (0.6-1.3); GLUCOSE 120 mg/dL (74-106); POTASSIUM 3.2 mmol/L (3.5-5.1); SODIUM SERUM 136 mmol/L (136-145); UREA NITROGEN, BLOOD 19 mg/dL (7-18)
[2022-08-06 12:30] LABS: ALANINE AMINOTRANSFERASE 54 U/L (12-78); ALBUMIN 3.5 g/dL (3.4-5.0); ALKALINE PHOSPHATASE 83 U/L (46-116); ASPARTATE AMINOTRANSFERASE 37 U/L (15-37); BILIRUBIN,DIRECT 0.1 mg/dL (0.0-0.2); BILIRUBIN,TOTAL 0.4 mg/dL (0.2-1.0); TOTAL PROTEIN, SERUM 7.4 g/dL (6.4-8.2)
[2022-08-06] MEDS ORDERED: MAGNESIUM HYDROXIDE 30 ML UDC PO PRN ×2 (12:30)
[2022-08-06] MEDS ORDERED: Z GUARD REMEDY 4 OZ OINT TP PRN (12:30)
[2022-08-06] MEDS ORDERED: MAG HYDROX/AL HYDROX/SIMETH 30 ML UDC PO PRN (12:30)
[2022-08-06] MEDS ORDERED: ONDANSETRON HCL/PF 4 MG/2 ML VIAL IVP PRN (12:30)
[2022-08-06] MEDS ORDERED: BISACODYL (5 MG) 5 MG TABLET.DR PO PRN (12:30)
[2022-08-06] MEDS ORDERED: ACETAMINOPHEN 325 MG TABLET PO PRN (12:30)
--- NOTE | 2022-08-06 14:00 | NUR ---
COVID SWAB SENT TO LAB
[2022-08-06] MEDS ORDERED: DIPH25TA62 PO (14:39)
[2022-08-06] MEDS ORDERED: GUAI100S11 GT (14:39)
[2022-08-06] MEDS ORDERED: ATOR10TA PO (14:39)
--- NOTE | 2022-08-06 16:30 | NUR ---
JAZLYN JACKSON AND PATRICIA AVILA CAMACHO SENT TO LAB
--- NOTE | 2022-08-06 17:25 | NUR ---
UA SENT TO LAB
--- NOTE | 2022-08-06 20:53 | NUR ---
REPORT GIVEN TO RN
--- NOTE | 2022-08-06 21:12 | NUR ---
PATIENT TRANSFERRED TO [facility]
--- NOTE | 2022-08-06 21:20 | NUR ---
RN NOTE RECEIVED PT FROM ER VIA ACLS PROTOCOL. PT ARRIVED IN A GURNEY WITH A DIAGNOSIS OF FAILURE TO THRIVE (FTT). PT IS A/O X 4 UPON ASSESSMENT. HE IS ABLE TO VERBALIZE NEEDS. ON RA, TOLERATING WELL. NO S/SX OF ACUTE RESPI DISTRESS NOTED AT THIS TIME. NO PAIN, NO SOB. BREATHING IS EVEN AND UNLABORED. COUGH NOTED. IV ACCESS ON L HAND, #20g. PATENT, INTACT AND FLUSHES WELL. SKIN IS INTACT. PT ABLE TO AMBULATE WITH NO WEAKNESS WHATSOEVER. PCR TEST STILL PENDING, TO R/O COVID. ALL SAFETY MEASURES IN PLACE: BED LOCKED IN LOW POSITION. SR UP X 2. CALL LIGHT WITHIN REACH. WILL CONTINUE TO MONITOR T/O THE SHIFT.
[2022-08-06] MEDS: SENNOSIDES 8.6 MG TABLET PO SCH (21:21)
[2022-08-06] MEDS: QUETIAPINE FUMARATE 100 MG TABLET PO SCH (21:21)
[2022-08-06] MEDS: IV NS 0.9% 1,000 ML IV PRN (21:22)
[2022-08-06] MEDS: EFAVIRENZ 600 MG TABLET PO SCH (22:00)
--- NOTE | 2022-08-06 22:18 | NUR ---
RN NOTE NON ADMIN OF SUSTIVA DUE TO UNAVAILABILITY OF MED. CHARGE NURSE MADE AWARE.
[2022-08-07] MEDS: LORAZEPAM 1 MG TABLET PO SCH ×3 (00:09→15:06)
[2022-08-07] MEDS: GUAIFENESIN/D-METHORPHAN HB 5 ML UDC PO PRN ×5 (00:12→23:11)
--- NOTE | 2022-08-07 00:19 | NUR ---
RN NOTE PT ASKED FOR SLEEPING PILL AND COUGH MED. ATIVAN AND ROBITUSSIN ADMINISTERED.
[2022-08-07] MEDS: TEMAZEPAM 15 MG CAPSULE PO PRN ×2 (03:47→23:11)
[2022-08-07 04:00] VITALS: BP 132/83
--- NOTE | 2022-08-07 05:16 | NUR ---
RN NOTE PT REMAINED STABLE T/O THE NIGHT. INTERMITTENT COUGHING NOTED. DUE MEDS GIVEN. NEEDS ATTENDED TO. WILL ENDORSE TO AM SHIFT NURSE FOR [facility].
[2022-08-07 06:16] LABS: BASOPHILS % (AUTO) 0.4 % (0.0-2.0); HEMATOCRIT 45 % (39-51); HEMOGLOBIN 14.7 g/dL (13.5-17.5); LYMPHOCYTES # (AUTO) 1.1 K/uL (0.8-4.8); LYMPHOCYTES % (AUTO) 28.3 % (20.0-44.0); MEAN CORPUSCULAR HGB CONC 33 g/dl (31.0-36.0); MEAN CORPUSCULAR VOLUME 95 fL (80-96); MONOCYTES # (AUTO) 0.5 K/uL (0.1-1.30); MONOCYTES % (AUTO) 12.2 % (2.0-12.0); NEUTROPHILS # (AUTO) 2.2 K/uL (1.8-8.9); NEUTROPHILS % (AUTO) 58.1 % (43.0-81.0); PLATELET COUNT (AUTO) 174 K/uL (150-450); RED BLOOD CELL COUNT(AUTO) 4.69 MIL/uL (4.5-6.0); WHITE BLOOD COUNT (AUTO) 3.9 K/uL (4.3-11.0)
[2022-08-07 07:02] LABS: CREATININE 0.9 mg/dL (0.6-1.3); PHOSPHORUS 2.6 mg/dL (2.5-4.9)
[2022-08-07 07:19] LABS: POTASSIUM 2.8 mmol/L (3.5-5.1)
--- NOTE | 2022-08-07 08:10 | NUR ---
RN NOTE CRITICAL LAB VALUE POTASSIUM 2.8. NOTIFIED RIKI NGUYEN MD. ORDERED KCL 80 PO X1.
[2022-08-07] MEDS ORDERED: POTASSIUM CHLORIDE 20 MEQ TAB.PRT.SR PO ONE (08:30)
[2022-08-07] MEDS: QUETIAPINE FUMARATE 25 MG TABLET PO SCH (09:24)
[2022-08-07] MEDS: DOCUSATE SODIUM 100 MG CAPSULE PO SCH (09:24)
[2022-08-07] MEDS: HYDROCHLOROTHIAZIDE 25 MG TABLET PO SCH (11:11)
[2022-08-07] MEDS: ESCITALOPRAM OXALATE (10 MG) 10 MG TABLET PO SCH (11:11)
[2022-08-07] MEDS: EMTRICITABINE 200 MG CAPSULE PO SCH (12:00)
[2022-08-07] MEDS: IV NS 0.9% 1,000 ML IV PRN (15:31)
[2022-08-07 16:00] VITALS: BP 130/85
--- NOTE | 2022-08-07 18:52 | NUR ---
RN CLOSING NOTE PATIENT IS AOX4, BREATHING ON ROOM AIR AT 98%. IV ACCESS ON RH #20 RUNNING NS @75MLS/HR. ALL SAFETY MEASURES IN PLACE, BED LOCKED IN LOWEST POSITION. CALL LIGHT WITHIN REACH. WILL ENDORSE CONTINUITY OF CARE TO FLOWER CHENILLER.
--- NOTE | 2022-08-07 19:30 | NUR ---
OPEN NOTE: ALERT AND ORIENTED TIMES 4. UNLABORED BREATHING AT ROOM AIR. IV ON LEFT HAND WITH IVF OF NS 75 ML/HR. PATENT, NO S/S OF COMPLICATIONS. HOB ELEVATED SEMI FOWLERS POSITION. BILATERAL HALF SIDE RAILS UPX2. BED IN LOW POSITION, LOCKED, EXIT ALARM ON. CALL LIGHT IN REACH. DENIES PAIN OR DISCOMFORT.
[2022-08-07 20:00] VITALS: BP 110/80
[2022-08-07] MEDS: QUETIAPINE FUMARATE 100 MG TABLET PO SCH (22:19)
[2022-08-07] MEDS: SENNOSIDES 8.6 MG TABLET PO SCH (22:19)
[2022-08-07] MEDS: EFAVIRENZ 600 MG TABLET PO SCH (22:19)
[2022-08-08] MEDS: LORAZEPAM 1 MG TABLET PO SCH ×5 (00:23→23:23)
[2022-08-08 04:00] VITALS: BP 128/78
[2022-08-08 06:21] LABS: BASOPHILS % (AUTO) 0.2 % (0.0-2.0); EOSINOPHILS % (AUTO) 1.9 % (0.0-6.0); HEMATOCRIT 44 % (39-51); HEMOGLOBIN 14.7 g/dL (13.5-17.5); LYMPHOCYTES # (AUTO) 1.4 K/uL (0.8-4.8); LYMPHOCYTES % (AUTO) 39.4 % (20.0-44.0); MEAN CORPUSCULAR HGB CONC 34 g/dl (31.0-36.0); MEAN CORPUSCULAR VOLUME 96 fL (80-96); MONOCYTES # (AUTO) 0.6 K/uL (0.1-1.30); MONOCYTES % (AUTO) 15.3 % (2.0-12.0); NEUTROPHILS # (AUTO) 1.6 K/uL (1.8-8.9); NEUTROPHILS % (AUTO) 43.2 % (43.0-81.0); PLATELET COUNT (AUTO) 169 K/uL (150-450); WHITE BLOOD COUNT (AUTO) 3.6 K/uL (4.3-11.0)
[2022-08-08 06:43] LABS: CALCIUM, SERUM 7.7 mg/dL (8.5-10.1); CREATININE 0.9 mg/dL (0.6-1.3); POTASSIUM 3.3 mmol/L (3.5-5.1)
--- NOTE | 2022-08-08 07:00 | NUR ---
CLOSING NOTE: ALERT AND ORIENTED TIMES 4. UNLABORED BREATHING AT ROOM AIR. IV ON LEFT HAND WITH IVF OF NS 75 ML/HR. PATENT, NO S/S OF COMPLICATIONS. HOB ELEVATED SEMI FOWLERS POSITION. BILATERAL HALF SIDE RAILS UPX2. BED IN LOW POSITION, LOCKED, EXIT ALARM ON. CALL LIGHT IN REACH. DENIES PAIN OR DISCOMFORT. ABLE TO SLEEP WELL.
--- NOTE | 2022-08-08 07:30 | NUR ---
Rn notes Received patient in bed, alert without active complaint. left hand IV site is dry, intact and patent with NS running at 75mL/hr. No SOB noted. No lower limbs edema. Call anguiano is placed within reach. Bed is locked and placed in the lowest position. All safety measures have been implemented. Will continue monitor and care.
[2022-08-08] MEDS: IV NS 0.9% 1,000 ML IV PRN (07:32)
[2022-08-08 08:00] VITALS: BP 134/83
[2022-08-08] MEDS ORDERED: POTASSIUM CHLORIDE 20 MEQ TAB.PRT.SR PO ONE (08:00)
[2022-08-08] MEDS: ESCITALOPRAM OXALATE (10 MG) 10 MG TABLET PO SCH (09:28)
[2022-08-08] MEDS: HYDROCHLOROTHIAZIDE 25 MG TABLET PO SCH (09:28)
[2022-08-08] MEDS: DOCUSATE SODIUM 100 MG CAPSULE PO SCH (09:28)
[2022-08-08] MEDS: QUETIAPINE FUMARATE 25 MG TABLET PO SCH (09:29)
[2022-08-08] MEDS: EMTRICITABINE 200 MG CAPSULE PO SCH (09:31)
--- NOTE | 2022-08-08 10:00 | NUR ---
FÁTIMA notes Patient complained cough with cough syrup administered. Did not observe any productive cough. Keep observation. Addendum: 08/08/22 at 1838 by DEZ FONTANEZ RN Patient complained headache. Administered tylenol and patient reported good effect.
[2022-08-08] MEDS: GUAIFENESIN/D-METHORPHAN HB 5 ML UDC PO PRN ×3 (10:04→23:07)
[2022-08-08 15:32] LABS: BAND % (MANUAL) 3 % (0.0-5.0); EOSINOPHILS % (MANUAL) 2 % (0-4); LYMPHOCYTES % (MANUAL) 40 % (16-48); NEUTROPHILS % (MANUAL) 43 (42-76)
[2022-08-08 15:33] LABS: MONOCYTES % (MANUAL) 12 % (0-11.0)
[2022-08-08 16:00] VITALS: BP 135/77
--- NOTE | 2022-08-08 18:38 | NUR ---
Rn notes Received patient in bed, alert without active complaint. left hand IV site is dry, intact and patent with NS running at 75mL/hr. No SOB noted. No lower limbs edema. Call anguiano is placed within reach. Bed is locked and placed in the lowest position. All safety measures have been implemented. Will continue monitor and care. Addendum: 08/08/22 at 1839 by DEZ FONTANEZ RN NS infusion has been stopped at 09:00. Patient can mobilize with steady gait.
--- NOTE | 2022-08-08 19:10 | NUR ---
OPEN NOTE: ALERT AND ORIENTED TIMES 4. UNLABORED BREATHING AT ROOM AIR. IV ON LEFT HAND. PATENT, NO S/S OF COMPLICATIONS. HOB ELEVATED SEMI FOWLERS POSITION. BILATERAL HALF SIDE RAILS UPX2. BED IN LOW POSITION, LOCKED, EXIT ALARM ON. CALL LIGHT IN REACH. DENIES PAIN OR DISCOMFORT.
[2022-08-08 20:00] VITALS: BP 130/80
[2022-08-08] MEDS: SENNOSIDES 8.6 MG TABLET PO SCH (22:58)
[2022-08-08] MEDS: QUETIAPINE FUMARATE 100 MG TABLET PO SCH (22:58)
[2022-08-08] MEDS: EFAVIRENZ 600 MG TABLET PO SCH (23:02)
[2022-08-08] MEDS: TEMAZEPAM 15 MG CAPSULE PO PRN (23:07)
[2022-08-09 04:00] VITALS: BP 137/89
[2022-08-09] MEDS: LORAZEPAM 1 MG TABLET PO SCH ×2 (06:44→12:43)
--- NOTE | 2022-08-09 07:00 | NUR ---
CLOSING NOTE: ALERT AND ORIENTED TIMES 4. UNLABORED BREATHING AT ROOM AIR. IV ON LEFT HAND. PATENT, NO S/S OF COMPLICATIONS. HOB ELEVATED SEMI FOWLERS POSITION. BILATERAL HALF SIDE RAILS UPX2. BED IN LOW POSITION, LOCKED, EXIT ALARM ON. CALL LIGHT IN REACH. DENIES PAIN OR DISCOMFORT, USES URINAL, ABLE TO SLEEP WELL. DENIES PAIN OR DISCOMFORT.
--- NOTE | 2022-08-09 07:15 | NUR ---
RN notes Received patient in bed, alert without active complaint. left hand IV site is dry, intact and patent . No SOB noted. No lower limbs edema. Call anguiano is placed within reach. Bed is locked and placed in the lowest position. All safety measures have been implemented. Will continue monitor and care.
[2022-08-09 08:00] VITALS: BP 154/89
[2022-08-09] MEDS: GUAIFENESIN/D-METHORPHAN HB 5 ML UDC PO PRN (08:04)
[2022-08-09 08:05] VITALS: BP 118/73
[2022-08-09] MEDS: EMTRICITABINE 200 MG CAPSULE PO SCH (08:05)
[2022-08-09] MEDS: HYDROCHLOROTHIAZIDE 25 MG TABLET PO SCH (08:05)
[2022-08-09] MEDS: QUETIAPINE FUMARATE 25 MG TABLET PO SCH (08:06)
[2022-08-09] MEDS: DOCUSATE SODIUM 100 MG CAPSULE PO SCH (08:06)
[2022-08-09] MEDS: ESCITALOPRAM OXALATE (10 MG) 10 MG TABLET PO SCH (08:06)
--- NOTE | 2022-08-09 13:23 | NUR ---
RN notes Patient is for discharge today. IV site over right forearm is removed. All belongings have been returned. Handover is given to FÁTIMA Banks at the SNF. Patient left at 1315.
== END 2022-08-09 13:45 | DRG 682 ==
LOC: ER 10:42 → TRANSITION 18:32 → UNDOADMIN 18:32 → MEDSG1 20:45
PROVIDERS: ADMIT Internal Medicine; ATTEND Internal Medicine
DX: N17.0 Acute kidney failure with tubular necrosis (principal); G93.41 Metabolic encephalopathy; E86.0 Dehydration; Z20.822 Contact with and (suspected) exposure to COVID-19; I10 Essential (primary) hypertension; R62.7 Adult failure to thrive; Z79.899 Other long term (current) drug therapy; E87.6 Hypokalemia; R05.9 Cough, unspecified; F25.9 Schizoaffective disorder, unspecified
CPT/HCPCS: 36415; 71045-TC; 80048-TC; 80076-TC; 83605-TC; 83735-TC; 84100-TC; 84484-TC; 85025-TC; 87040-TC; 87081-TC; 97112-TC; 97116-TC; 97530-TC; C9803; G0378; J7030; U0003

== ENCOUNTER 2022-12-01 07:57 | Emergency (ER) | payer MEDICARE, OTHER ==
[~2022-12-01] VITALS: Ht 165.1 cm; Wt 66.7 kg
[~2022-12-01 07:57] MED LIST changes: +ATOR10TA PO; +DIPH25TA62 PO; +GUAI100S11 GT
--- NOTE | 2022-12-01 09:00 | NUR ---
BIBS FOR BACK PAIN. A/O X 3, TOLERATING WELL ON ROOM AIR.
--- NOTE | 2022-12-01 09:30 | NUR ---
BLOOD DRAWN, INCLUDING CULTURES AND SENT TO LAB
--- NOTE | 2022-12-01 09:30 | NUR ---
ESTABLISHED IV ACCESS. 20 G RIGHT AC.
[2022-12-01 09:41] LABS: BASOPHILS % (AUTO) 0.5 % (0.0-2.0); EOSINOPHILS % (AUTO) 0.2 % (0.0-6.0); HEMATOCRIT 53 % (39-51); HEMOGLOBIN 17.3 g/dL (13.5-17.5); LYMPHOCYTES # (AUTO) 1.4 K/uL (0.8-4.8); LYMPHOCYTES % (AUTO) 24.5 % (20.0-44.0); MEAN CORPUSCULAR HGB CONC 33 g/dl (31.0-36.0); MEAN CORPUSCULAR VOLUME 97 fL (80-96); MONOCYTES # (AUTO) 0.7 K/uL (0.1-1.30); NEUTROPHILS # (AUTO) 3.5 K/uL (1.8-8.9); NEUTROPHILS % (AUTO) 62.8 % (43.0-81.0); PLATELET COUNT (AUTO) 235 K/uL (150-450); RED BLOOD CELL COUNT(AUTO) 5.49 MIL/uL (4.5-6.0); WHITE BLOOD COUNT (AUTO) 5.6 K/uL (4.3-11.0)
[2022-12-01 09:49] LABS: CALCIUM, SERUM 9.6 mg/dL (8.5-10.1); CARBON DIOXIDE 27 mmol/L (21-32); CHLORIDE 99 mmol/L (98-107); CREATININE 1.2 mg/dL (0.6-1.3); GLUCOSE 114 mg/dL (74-106); SODIUM SERUM 135 mmol/L (136-145); UREA NITROGEN, BLOOD 11 mg/dL (7-18)
--- NOTE | 2022-12-01 11:05 | NUR ---
COVID SWAB OBTAINED
--- NOTE | 2022-12-01 11:09 | NUR ---
INFLUENZA SWAB OBTAINED
[2022-12-01] MEDS ORDERED: HYDROCODONE/APAP 5/325MG TABLET ONE (11:10)
[2022-12-01] MEDS ORDERED: HYDROCODONE/APAP 5/325MG TABLET PO ONE (11:30)
--- NOTE | 2022-12-01 12:22 | NUR ---
CALLED [facility] FOR TRANSPORT ETA 20 MINS.
[2022-12-01] MEDS ORDERED: GUAIFENESIN 300 MG/15 ML UDC ONE (14:05)
--- NOTE | 2022-12-01 14:07 | NUR ---
IV removed. Catheter intact and site benign. Pressure and 4x4 applied to site. No bleeding noted.
--- NOTE | 2022-12-01 14:08 | NUR ---
Patient discharged to home in stable condition. Written and verbal after care instructions given. Patient verbalizes understanding of instruction.
[2022-12-01 14:09] VITALS: BP 114/83
[2022-12-01] MEDS ORDERED: GUAIFENESIN 300 MG/15 ML UDC PO ONE (14:30)
== END 2022-12-01 14:09 | disposition home or self-care (01) ==
LOC: ER 08:36
DX: J06.9 Acute upper respiratory infection, unspecified (principal); M54.9 Dorsalgia, unspecified; I10 Essential (primary) hypertension; Z20.822 Contact with and (suspected) exposure to COVID-19; Z79.899 Other long term (current) drug therapy
CPT/HCPCS: 36415; 71045-TC; 72110-TC; 80048-TC; 83605-TC; 83880; 84484-TC; 85025-TC; 87040-TC; C9803